=== PATIENT | female | born 1955 | race Asian ===

== ENCOUNTER 2017-11-19 11:58 | Inpatient (IN) | payer OTHER ==
[~2017-11-19] VITALS: Ht 157.5 cm; Wt 73.0 kg
[~2017-11-19 11:58] MED LIST: GUAIFENESIN-COD10 ML PO
[2017-11-19] MEDS ORDERED: METFORMIN HCL1000 M1 PO (12:55)
--- NOTE | 2017-11-19 12:55 | ED GI/GU/ABDOMINAL COMPLAINT ---
History of Present Illness General Chief Complaint: Abdominal Pain/Flank Pain Stated Complaint: SENT BY CLINIC FOR LLQ PAIN Source: patient Exam Limitations: no limitations Vital Signs & Intake/Output Vital Signs & Intake/Output Vital Signs Date Time Temp Pulse Resp B/P B/P Pulse O2 O2 Flow FiO2 Mean Ox Delivery Rate 11/19 1738 98.5 86 18 155/77 98 Room Air Room Air 11/19 1506 98.4 84 18 147/53 99 Room Air 11/19 1212 97.0 84 16 153/82 98 Room Air Allergies Coded Allergies: NO KNOWN ALLERGIES (05/22/16) Reconcile Medications Metformin HCl 1,000 MG TABLET 2 TAB PO DAILY DIABETES (Reported) Multivitamin (Daily Value) 1 EACH TABLET 1 TAB PO DAILY VITAMIN SUPPORT ( Reported) Triage Note: PT TO ED WITH LLQ PAIN. WAS SIB [facility] SINCE THEY COULDNT DO THE EXAM IN THEIR OFFICE. PT HAS FELT NAUSEOUS. DENIES ANY DIARRHEA. IS UNABLE TO WALK OR STAND UP WITHOUT BE3ING IN 10/10 PAIN PER PT. Triage Nurses Notes Reviewed? yes ? n Is pt currently ? No Onset: Gradual Duration: day(s): Timing: recent history Quality/Severity: severe Location: left lower quadrant Radiation: no radiation HPI: 62-year-old female with a history of ovarian cysts presents to emergency department complaining of left lower quadrant abdominal pain. Patient reports generalized abdominal discomfort yesterday and bloating feeling. Patient has still been tolerating PO, she ate cereal last night for dinner. Patient states that this morning pain was increasing, located in left lower quadrant described as severe, 10/10, worse with movement. Patient is barely able to walk without significant pain and left lower quadrant. Patient also experiencing nausea. She has no history of a similar pain in the past. The patient denies diarrhea, constipation, changes in diet, vomiting, urinary symptoms. Past History Travel History Traveled to [place] past 21 day No Medical History Any Pertinent Medical History? 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 No Review of Systems Review of Systems Constitutional: Reports: no symptoms. EENTM: Reports: no symptoms. Respiratory: Reports: no symptoms. Cardiovascular: Reports: no symptoms. GI: Reports: see HPI. Genitourinary: Reports: no symptoms. Musculoskeletal: Reports: no symptoms. Skin: Reports: no symptoms. Neurological/Psychological: Reports: no symptoms. Hematologic/Endocrine: Reports: no symptoms. Immunologic/Allergic: Reports: no symptoms. All Other Systems: Reviewed and Negative Physical Exam Physical Exam General Appearance: well developed/nourished, no apparent distress, alert, awake Head: atraumatic, normal appearance Eyes: Bilateral: normal appearance. Ears, Nose, Throat, Mouth: hearing grossly normal Neck: normal inspection, supple, full range of motion Respiratory: normal breath sounds, no respiratory distress, lungs clear Cardiovascular: regular rate/rhythm Gastrointestinal: normal bowel sounds, soft, no organomegaly, LLQ tenderness with gaurding, pain in left abdomen with palpation of right abdomen Back: normal inspection, normal range of motion Extremities: normal range of motion Neurologic/Psych: awake, alert, oriented x 3 Skin: intact, normal color, warm/dry Core Measures ACS in differential dx? No Sepsis Present: No Sepsis Focused Exam Completed? No Progress Differential Diagnosis: appendicitis, bowel obstruction, diverticulitis, gastritis, hernia, ischemic bowel, inflamm bowel dis, kidney stone, ovarian cyst , pancreatitis, SBO, UTI/pyelo Plan of Care: Orders Procedure Date/time Status Patient Data 11/19 1731 Active Admit to inpatient 11/19 1710 Active BLOOD CULTURE 11/19 1651 Active Add-on Test (ER Only) 11/19 1320 Active TRIGLYCERIDES 11/19 1310 Complete LACTIC ACID 11/19 1310 Complete AMYLASE 11/19 1310 Complete URINALYSIS 11/19 1213 Complete TROPONIN LEVEL 11/19 1213 Complete LIPASE 11/19 1213 Complete COMPREHENSIVE METABOLIC PANEL 11/19 1213 Complete CBC WITHOUT DIFFERENTIAL 11/19 1213 Complete Laboratory Tests 11/19/17 1458: Urine Color YEL, Urine Clarity CLEAR, Urine pH 6.0, Ur Specific [place] 1.010, Urine Protein NEG, Urine Ketones NEG, Urine Nitrite NEG, Urine Bilirubin NEG, Urine Urobilinogen 0.2, Ur Leukocyte Esterase NEG, Ur Microscopic EXAM NOT REQUIRED, Urine Hemoglobin NEG, Urine Glucose NEG 11/19/17 1310: Anion Gap 15, Estimated GFR > 60, BUN/Creatinine Ratio 23.3, Glucose 115 H, Lactic Acid 2.6 H, Calcium 9.4, Total Bilirubin 0.9, AST 28, ALT 28, Alkaline Phosphatase 53, Troponin I 0.04, Total Protein 7.6, Albumin 5.1 H, Globulin 2.5 , Albumin/Globulin Ratio 2.0, Triglycerides 113, Amylase 65, Lipase 204, CBC w Diff NO MAN DIFF REQ, RBC 4.74, MCV 90.1, MCH 31.2 H, MCHC 34.6, RDW 12.5, MPV 6.5 L, Gran % 76.6 H, Lymphocytes % 14.4 L, Monocytes % 6.8, Eosinophils % 1.8, Basophils % 0.4, Absolute Granulocytes 8.5 H, Absolute Lymphocytes 1.6, Absolute Monocytes 0.8 H, Absolute Eosinophils 0.2, Absolute Basophils 0 Microbiology 11/19 1650 BLOOD: Blood Culture - ORD 11/19 1650 BLOOD: Blood Culture - ORD Patient parents indicating significant pain in her abdomen when she walks. Labs reveal elevated lactic acid, patient started on IV fluids. CT scan shows diverticulitis without perforation or abscess. Given patient's elevated lactic acid with her significant pain patient is a candidate for hospital admission. Patient requires IV antibiotics, IV fluids, repeat labs, possible GI consult. Premature discharge medically unsafe at this time. Patient started on IV Unasyn. Spoke with case management who recommended full admission. Spoke with hospitalist, Dr. Sanchez regarding general medicine admission. Spoke with Dr. Johnson regarding this patient. Diagnostic Imaging: Viewed by Me: CT Scan. Discussed w/RAD: CT Scan. Radiology Impression: PATIENT: LOC WILSON PRESENT AGE: 62 PATIENT ACCOUNT NO: [id number] : 54 LOCATION: [facility] ORDERING PHYSICIAN: Karoline VALENCIA SERVICE DATE: 11/19/17 EXAM TYPE: CAT - CT ABD & PELVIS W IV CONTRAST EXAMINATION: CT ABDOMEN AND PELVIS WITH CONTRAST CLINICAL INFORMATION: Diverticulitis. Left lower quadrant pain and tenderness with peritoneal signs. COMPARISON: None TECHNIQUE: Multidetector volumetric imaging was performed of the abdomen and pelvis following IV administration of 95 mL of Optiray 320 intravenous contrast. Sagittal and coronal reformatted images were obtained on the technologist's workstation. DLP: 313.19 mGy-cm FINDINGS: LUNG BASES: The visualized lung bases are unremarkable. LIVER, GALLBLADDER, AND BILIARY TREE: Mild low attenuation of liver parenchyma. No focal liver lesion. No intrahepatic bile duct dilatation. The gallbladder is unremarkable with no evidence of radiopaque gallstones, gallbladder wall thickening, or obvious pericholecystic inflammatory changes. PANCREAS: Unremarkable. SPLEEN: Unremarkable. ADRENAL GLANDS: Unremarkable. KIDNEYS AND URETERS: The kidneys are normal in size, shape, and attenuation. No hydronephrosis, hydroureter, or calculi seen. No perinephric stranding. BLADDER: Unremarkable. GASTROINTESTINAL TRACT: There is diverticula throughout the colon but are most numerous at the left colon and sigmoid. There is focal inflammation of the mid descending colon involving the pericolonic fat. There is focal bowel wall thickening in this area over a short segment. This is a region of diverticulitis of the mid descending colon. There is no perforation or abscess. There is no obstruction. The appendix is normal. The small bowel loops are normal. MESENTERY: Focal inflammation involving the pericolonic fat around the area of diverticulitis. There is no abscess. No perforation or free air. ABDOMINAL WALL: No significant hernia is appreciated. LYMPH NODES: Normal. VASCULAR: Unremarkable. PELVIC VISCERA: The uterus is absent. No adnexal abnormality. OSSEOUS STRUCTURES: Multilevel degenerative spondylosis spine with endplate spurring of the vertebrae. There is facet joint arthrosis. IMPRESSION: 1. Diverticulitis of the descending colon. No perforation or abscess. No free air. 2. Diffuse fatty change of liver. DICTATED BY: Devyn Villegas MD DATE/TIME DICTATED:11/19/171605 WARP SPINNER:MARCIA DATE/TIME TRANSCRIBED:1605 CONFIDENTIAL, DO NOT COPY WITHOUT APPROPRIATE AUTHORIZATION. < Electronically signed in Other Vendor System> SIGNED BY: Devyn Villegas MD 1615 Initial ED EKG: none Departure Departure Disposition: STILL A PATIENT Condition: Stable Clinical Impression Primary Impression: Diverticulitis Secondary Impressions: Abdominal pain Qualifiers: Abdominal location: left lower quadrant Qualified Code: R10.32 - Left lower quadrant pain Referrals: Turner BALBUENA,Wellington Cruz (PCP/Family) Departure Forms: Customer Survey General Discharge Information Admission Note Spoke With: Piotr Sanchez MD Documentation of Exam: Documentation of any treatments & extenuating circumstances including Concerns Regarding Discharge (functional status, medication knowledge or non-compliance, living conditions, etc.) that warrant an admission rather than observation: [ Diverticulitis with significant abdominal pain, elevated lactic acid, requiring IV antibiotic, repeat labs, IV fluids, premature discharge medically unsafe]
[2017-11-19] MEDS ORDERED: DAILY VALUE1 EACH PO (12:56)
[2017-11-19 13:21] LABS: ABSOLUTE BASOPHIL COUNT 0 /CUMM (0.0-0.2); ABSOLUTE EOSINOPHIL COUNT 0.2 /CUMM (0.0-0.7); ABSOLUTE GRANULOCYTE CT 8.5 /CUMM (1.4-6.5); ABSOLUTE LYMPH COUNT 1.6 /CUMM (1.2-3.4); ABSOLUTE MONOCYTE COUNT 0.8 /CUMM (0.10-0.60); BASOPHIL % 0.4 % (0.0-2.0); EOSINOPHIL % 1.8 % (0-5); GRANULOCYTE % 76.6 % (42.2-75.2); HEMATOCRIT 42.7 % (37-47); MEAN CORPUSCULAR HGB 31.2 PG (27.0-31.0); MEAN CORPUSCULAR HGB CONC 34.6 G/DL (33.0-37.0); MEAN CORPUSCULAR VOLUME 90.1 FL (81.0-99.0); MEAN PLATELET VOLUME 6.5 FL (7.4-10.4); PLATELET COUNT 328 /CUMM (130-400); RBC DISTRIBUTION WIDTH 12.5 % (11.5-14.5); RED BLOOD CELL CT 4.74 /CUMM (4.20-5.40); WHITE BLOOD CELL COUNT 11.1 /CUMM (4.8-10.8)
--- NOTE | 2017-11-19 16:15 | CT SCAN REPORT ---
EXAMINATION: CT ABDOMEN AND PELVIS WITH CONTRAST CLINICAL INFORMATION: Diverticulitis. Left lower quadrant pain and tenderness with peritoneal signs. COMPARISON: None TECHNIQUE: Multidetector volumetric imaging was performed of the abdomen and pelvis following IV administration of 95 mL of Optiray 320 intravenous contrast. Sagittal and coronal reformatted images were obtained on the technologist's workstation. DLP: 313.19 mGy-cm FINDINGS: LUNG BASES: The visualized lung bases are unremarkable. LIVER, GALLBLADDER, AND BILIARY TREE: Mild low attenuation of liver parenchyma. No focal liver lesion. No intrahepatic bile duct dilatation. The gallbladder is unremarkable with no evidence of radiopaque gallstones, gallbladder wall thickening, or obvious pericholecystic inflammatory changes. PANCREAS: Unremarkable. SPLEEN: Unremarkable. ADRENAL GLANDS: Unremarkable. KIDNEYS AND URETERS: The kidneys are normal in size, shape, and attenuation. No hydronephrosis, hydroureter, or calculi seen. No perinephric stranding. BLADDER: Unremarkable. GASTROINTESTINAL TRACT: There is diverticula throughout the colon but are most numerous at the left colon and sigmoid. There is focal inflammation of the mid descending colon involving the pericolonic fat. There is focal bowel wall thickening in this area over a short segment. This is a region of diverticulitis of the mid descending colon. There is no perforation or abscess. There is no obstruction. The appendix is normal. The small bowel loops are normal. MESENTERY: Focal inflammation involving the pericolonic fat around the area of diverticulitis. There is no abscess. No perforation or free air. ABDOMINAL WALL: No significant hernia is appreciated. LYMPH NODES: Normal. VASCULAR: Unremarkable. PELVIC VISCERA: The uterus is absent. No adnexal abnormality. OSSEOUS STRUCTURES: Multilevel degenerative spondylosis spine with endplate spurring of the vertebrae. There is facet joint arthrosis. IMPRESSION: 1. Diverticulitis of the descending colon. No perforation or abscess. No free air. 2. Diffuse fatty change of liver.
--- NOTE | 2017-11-19 18:21 | History & Physical ---
Jas BALBUENA,[facility] 11/19/17 1821: General Information and HPI MD Statement: I have seen and personally examined LOC WILSON and documented this H&P. The patient is a 62 year old F who presented with a patient stated chief complaint of [abdominal pain]. Source of Information: patient Exam Limitations: no limitations History of Present Illness: 62 yo F with history of diabetes presented to the ED for evaluation of abdominal pain. Patient states that she has been having intermittent episodes of abdominal pain going on for the past few months but has never seen a doctor for it as she did not believe it to be significant. Last night after dinner she started experiencing generalized abdominal pain, bloating and regurgitation. No nausea/ vomiting. She applied some vicks to relieve her pain and went to bed. She woke up this morning and went to work. Around 9am or so, she started experiencing increasing abdominal pain more localized to her left side, non radiating, aggravated with movement, with no relieving factors, 10/10 in severity with no associated symptoms of nausea, vomiting, diarrhea etc. She went to an urgent care around 11am and after some blood work she was sent to the ED for further evaluation. 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 EENTM: Reports: no symptoms. Cardiovascular: Denies: chest pain, palpitations. Respiratory: Denies: cough, short of breath. GI: Reports: see HPI. Genitourinary: Reports: no symptoms. Musculoskeletal: Denies: joint pain. Skin: Reports: no symptoms. Neurological/Psychological: Reports: no symptoms. Exam & Diagnostic Data Last 24 Hrs of Vital Signs/I&O Vital Signs Date Time Temp Pulse Resp B/P B/P Pulse O2 O2 Flow FiO2 Mean Ox Delivery Rate 05/04 1934 98.5 84 18 128/69 98 Room Air 11/19 1738 98.5 86 18 155/77 98 Room Air Room Air 11/19 1506 98.4 84 18 147/53 99 Room Air 11/19 1212 97.0 84 16 153/82 98 Room Air Intake & Output 11/19 1600 11/19 0800 11/19 0000 Intake Total 1100 Output Total Balance 1100 Intake, IV 1100 Physical Exam General Appearance Alert, Oriented X3, Cooperative, Mild Distress Skin No Rashes, No Breakdown Skin Temp/Moisture Exam: Warm/Dry Sepsis Skin Exam (color): Normal for Ethnicity HEENT Atraumatic Cardiovascular Normal S1, Normal S2, No Murmurs Lungs Normal Air Movement Abdomen Normal Bowel Sounds, Soft, LUQ/LLQ tenderness Neurological Normal Speech Extremities No Cyanosis, No Edema Last 24 Hrs of Labs/Steve: Laboratory Tests 11/19/17 1458: Urine Color YEL, Urine Clarity CLEAR, Urine pH 6.0, Ur Specific [place] 1.010, Urine Protein NEG, Urine Ketones NEG, Urine Nitrite NEG, Urine Bilirubin NEG, Urine Urobilinogen 0.2, Ur Leukocyte Esterase NEG, Ur Microscopic EXAM NOT REQUIRED, Urine Hemoglobin NEG, Urine Glucose NEG 11/19/17 1310: Anion Gap 15, Estimated GFR > 60, BUN/Creatinine Ratio 23.3, Glucose 115 H, Lactic Acid 2.6 H, Calcium 9.4, Total Bilirubin 0.9, AST 28, ALT 28, Alkaline Phosphatase 53, Troponin I 0.04, Total Protein 7.6, Albumin 5.1 H, Globulin 2.5 , Albumin/Globulin Ratio 2.0, Triglycerides 113, Amylase 65, Lipase 204, CBC w Diff NO MAN DIFF REQ, RBC 4.74, MCV 90.1, MCH 31.2 H, MCHC 34.6, RDW 12.5, MPV 6.5 L, Gran % 76.6 H, Lymphocytes % 14.4 L, Monocytes % 6.8, Eosinophils % 1.8, Basophils % 0.4, Absolute Granulocytes 8.5 H, Absolute Lymphocytes 1.6, Absolute Monocytes 0.8 H, Absolute Eosinophils 0.2, Absolute Basophils 0 Microbiology 11/19 1650 BLOOD: Blood Culture - CAN Cancelled: Cancelled via OE: Per MD Decision 11/19 1650 BLOOD: Blood Culture - CAN Cancelled: Cancelled via OE: Per MD Decision Assessment/Plan Assessment: 62 yo F with history of diabetes presented to the ED for evaluation of abdominal pain. Her labs show a mildly increased white count and imaging findings of diverticulitis of the descending colon. with no perforation or abscess. In the ED the patient was started on Unasyn Assessment: 1. Acute Diverticulitis 2. Elevated Lactic Acid 3. History of Diabetes Plan: * Admit patient to general medicine floor. * Continue IV Unasyn 3g q6. * Hydrate with NS @100ml/hr * Pain control with IV morphine 2mg q4 prn and tylenol 650mg prn q6 * Trend Lactic Acid. No signs of sepsis * Hold Metformin. Insulin SS with Accucheks * Diet: Clear Liquid diet. Will advance as tolerated * DVT Prophylaxis: SC Lovenox * Code: Full Code As Ranked By This Provider Problem List: 1. Diverticulitis Core Measures/Misc (04/04) Acute Coronary Syndrome ACS Diagnosis: No Congestive Heart Failure Congestive Heart Failure Diagnosis No Cerebrovascular Accident CVA/TIA Diagnosis: No VTE (View Protocol) VTE Risk Factors Age>40 No Mechanical VTE Prophylaxis d/t N/A MechProphylax Ordered No VTE Pharm Prophylaxis d/t NA PharmProphylax ordered Sepsis (View protocol) Sepsis Present: No Linda Yancey MD 11/19/172036: Resident Review Statement Resident Statement: examined this patient, discussed with advisory internship, agreed with advisory internship Other Findings: 62 Yo F with a PMH of NIDDM with c/o lower abdominal pain for since last night with regurgitation of food and a feeling of bloating. She denies constipation or diarrhea, fever, chills, nausea or vomiting. Had a normal colonoscopy many years ago. Assessment 1. Diverticulitis of the descending colon 2. Type 2 NIDDM Plan -Admit to GM -Clear liquid diet for now for bowel rest -Continue IVF hydration -IV unasyn 3gm Q6hrs -Hold Metformin for now -GI consult in AM -Adequate pain control -Novolog SS -Fingerstick glucose TIDAC/HS -FC -SQ lovenox for DVT ppx Piotr Sanchez MD 11/19/172238: Attending MD Review Statement Attending Statement Attending MD Statement: examined this patient, discuss w/resident/PA/CAR FERRY MASTER, agreed w/resident/PA/CAR FERRY MASTER, reviewed EMR data (avail) Attending Assessment/Plan: 62F PMH T2DM with 3 weeks of LLQ pain, loose stools, and nausea, found to have acute diverticulitis without abscess or perforation on CT. Patient is very uncomfortable and in significant pain. She is having trouble eating due to discomfort. She is hemodynamically stable, WBC 11, lactate 2.6. LLQ tenderness on exam. Will admit to medicine, Unasyn, advance diet as tolerated, pain control , DVT PPx
[2017-11-19 21:31] VITALS: BP 130/80
--- NOTE | 2017-11-20 05:00 | PN- Housestaff ---
See Addendum Subjective Follow-up For: Acute Diverticulitis Subjective: Patient was seen and examined at bedside. She reports doing better. Her pain has significantly improved. Mentions that her feet have some numbess which has been going on for a while and related to her diabetes. Review of Systems Constitutional: Reports: no symptoms. Neurological/Psychological: Reports: numbness, paresthesia (feet). Objective Last 24 Hrs of Vital Signs/I&O Vital Signs Date Time Temp Pulse Resp B/P B/P Pulse O2 O2 Flow FiO2 Mean Ox Delivery Rate 11/19 2131 98.6 85 18 130/80 94 11/19 1934 98.5 84 18 128/69 98 Room Air 11/19 1738 98.5 86 18 155/77 98 Room Air Room Air 11/19 1506 98.4 84 18 147/53 99 Room Air 11/19 1212 97.0 84 16 153/82 98 Room Air Intake & Output 11/20 0800 11/20 0000 11/19 1600 Intake Total 220 1100 Output Total 300 Balance -182 149 7844 Intake, IV 100 1100 Intake, Oral 120 Output, Urine 300 Patient 146 lb Weight Weight Reported by Patient Measurement Method Physical Exam General Appearance: Alert, Oriented X3, Cooperative, Mild Distress Skin: No Rashes, No Breakdown Skin Temp/Moisture Exam: Warm/Dry Sepsis Skin Exam (color): Normal for Ethnicity HEENT: Atraumatic Cardiovascular: Normal S1, Normal S2 Lungs: Clear to Auscultation, Normal Air Movement Abdomen: Soft, LUQ tenderness Neurological: Normal Speech Extremities: No Edema Last 24 Hrs of Lab/Steve Results Last 24 Hrs of Labs/Mics: Laboratory Tests 11/20/17 0040: Lactic Acid 1.2 11/19/17 1458: Urine Color YEL, Urine Clarity CLEAR, Urine pH 6.0, Ur Specific [place] 1.010, Urine Protein NEG, Urine Ketones NEG, Urine Nitrite NEG, Urine Bilirubin NEG, Urine Urobilinogen 0.2, Ur Leukocyte Esterase NEG, Ur Microscopic EXAM NOT REQUIRED, Urine Hemoglobin NEG, Urine Glucose NEG 11/19/17 1310: Anion Gap 15, Estimated GFR > 60, BUN/Creatinine Ratio 23.3, Glucose 115 H, Lactic Acid 2.6 H, Calcium 9.4, Total Bilirubin 0.9, AST 28, ALT 28, Alkaline Phosphatase 53, Troponin I 0.04, Total Protein 7.6, Albumin 5.1 H, Globulin 2.5 , Albumin/Globulin Ratio 2.0, Triglycerides 113, Amylase 65, Lipase 204, CBC w Diff NO MAN DIFF REQ, RBC 4.74, MCV 90.1, MCH 31.2 H, MCHC 34.6, RDW 12.5, MPV 6.5 L, Gran % 76.6 H, Lymphocytes % 14.4 L, Monocytes % 6.8, Eosinophils % 1.8, Basophils % 0.4, Absolute Granulocytes 8.5 H, Absolute Lymphocytes 1.6, Absolute Monocytes 0.8 H, Absolute Eosinophils 0.2, Absolute Basophils 0 Microbiology 11/19 1650 BLOOD: Blood Culture - CAN Cancelled: Cancelled via OE: Per MD Decision 11/19 1650 BLOOD: Blood Culture - CAN Cancelled: Cancelled via OE: Per MD Decision Assessment/Plan Assessment: 62 yo F with history of diabetes presented to the ED for evaluation of abdominal pain. Her labs on admission showed a mildly increased white count and imaging findings of diverticulitis of the descending colon without perforation or abscess. Assessment: 1. Acute Diverticulitis 2. Elevated Lactic Acid - resolved 3. History of Diabetes Plan: * Continue IV Unasyn 3g q6 for now. * Pain control with IV morphine 2mg q4 prn and tylenol 650mg prn q6 * Lactic acid was elevated on admission but has resolved. * Follow up HbA1c, folate and B12. * Continue Insulin SS with Accucheks * Diet: Clear Liquid diet. Will advance to full liquid diet for lunch. * DVT Prophylaxis: SC Lovenox * Code: Full Code Problem List: 1. Diverticulitis Pain Ratin Pain Location: none Pain Goal: Remain pain free Pain Plan: none Tomorrow's Labs & Rationales: CBC
[2017-11-20 05:46] VITALS: BP 106/64
[2017-11-20 08:29] LABS: ABSOLUTE BASOPHIL COUNT 0 /CUMM (0.0-0.2); ABSOLUTE EOSINOPHIL COUNT 0.3 /CUMM (0.0-0.7); ABSOLUTE GRANULOCYTE CT 4.2 /CUMM (1.4-6.5); ABSOLUTE LYMPH COUNT 1.4 /CUMM (1.2-3.4); ABSOLUTE MONOCYTE COUNT 0.4 /CUMM (0.10-0.60); BASOPHIL % 0.4 % (0.0-2.0); EOSINOPHIL % 4.1 % (0-5); HEMATOCRIT 38.4 % (37-47); MEAN CORPUSCULAR HGB 30.6 PG (27.0-31.0); MEAN CORPUSCULAR VOLUME 90.1 FL (81.0-99.0); MEAN PLATELET VOLUME 6.9 FL (7.4-10.4); PLATELET COUNT 268 /CUMM (130-400); RBC DISTRIBUTION WIDTH 12.9 % (11.5-14.5); RED BLOOD CELL CT 4.26 /CUMM (4.20-5.40); WHITE BLOOD CELL COUNT 6.3 /CUMM (4.8-10.8)
[2017-11-20 13:39] VITALS: BP 125/69
[2017-11-20 22:13] VITALS: BP 114/84
[2017-11-21 07:02] VITALS: BP 124/72
[2017-11-21] MEDS ORDERED: AUGMENTIN 875-1 EACH PO ×2 (08:29→10:50)
--- NOTE | 2017-11-21 08:30 | Patient Discharge Instructions ---
Discharge Instructions General Discharge Information You were seen/treated for: Diverticulitis Watch for these problems: Fever, chest pain, shortness of breath Special Instructions: Please take all medications as directed. Please follow-up with primary care. Diet Continue normal diet: Yes Recommended Diet: high fiber Activity Full Activity/No Limits: Yes Acute Coronary Syndrome Inclusion Criteria At DC or during hospital stay patient has or had the following: ACS DIAGNOSIS No Discharge Core Measures Meds if any: Prescribed or Continued at Discharge Meds if any: NOT Prescribed or Continued at Discharge Congestive Heart Failure Inclusion Criteria At DC or during hospital stay patient has or had the following: CHF DIAGNOSIS No Discharge Core Measures Meds if any: Prescribed or Continued at Discharge Meds if any: NOT Prescribed or Continued at Discharge Cerebrovascular accident Inclusion Criteria At DC or during hospital stay patient has or had the following: CVA/TIA Diagnosis No Discharge Core Measures Meds if any: Prescribed or Continued at Discharge Meds if any: NOT Prescribed or Continued at Discharge Venous thromboembolism Inclusion Criteria VTE Diagnosis No VTE Type NONE VTE Confirmed by (Test) NONE Discharge Core Measures - Per Current guidelines, there needs to be overlap - treatment for the first 5 days of Warfarin therapy. - If discharged on Warfarin prior to 5 days of - overlap therapy, the patient will need to be - assessed for post discharge needs including - *Post discharge parental anticoagulation - *Warfarin and/or parental anticoagulation education - *Follow up date to check INR post discharge At least 5 days overlap therapy as Inpatient No Meds if any: Prescribed or Continued at Discharge Note: Overlap Therapy is Warfarin and Anticoagulant Meds if any: NOT Prescribed or Continued at Discharge
--- NOTE | 2017-11-21 08:31 | PN- Housestaff ---
See Addendum Subjective Follow-up For: Diverticulitis Subjective: No overnight events. Patient slept well and has no complaints this morning. No abdominal pain, chest pain, shortness of breath. Patient wants to go home. Review of Systems Constitutional: Reports: no symptoms. EENTM: Reports: no symptoms. Cardiovascular: Reports: no symptoms. Respiratory: Reports: no symptoms. Gastrointestinal: Reports: no symptoms. Genitourinary: Reports: no symptoms. Musculoskeletal: Reports: no symptoms. Skin: Reports: no symptoms. Neurological/Psychological: Reports: no symptoms. Hematologic/Endocrine: Reports: no symptoms. Immunologic/Allergic: Reports: no symptoms. Objective Last 24 Hrs of Vital Signs/I&O Vital Signs Date Time Temp Pulse Resp B/P B/P Pulse O2 O2 Flow FiO2 Mean Ox Delivery Rate 11/21 0702 98.0 69 20 124/72 96 Room Air 11/20 2213 97.6 79 18 114/84 96 Room Air 11/20 1339 98.1 94 18 125/69 94 Room Air Intake & Output 11/21 1600 11/21 0800 11/21 0000 Intake Total 500 950 Output Total Balance 500 950 Intake, IV 260 Intake, Oral 240 950 Physical Exam General Appearance: Alert, Oriented X3, Cooperative, No Acute Distress Cardiovascular: Regular Rate, Normal S1, Normal S2 Lungs: Clear to Auscultation Abdomen: point tenderness LUQ Extremities: No Edema, Normal Pulses, No Tenderness/Swelling Current Medications: Current Medications Sig/Sandy Start time Last Medication Dose Route Stop Time Status Admin Acetaminophen 650 MG Q6P PRN 11/19 184 AC PO Acetaminophen 1,000 MG Q6P PRN 11/19 184 AC IV Ampicillin Sodium/ 3,000 MG Q6 11/19 2359 AC 11/21 Sulbactam Sodium IV 0520 Sodium Chloride 100 ML Enoxaparin Sodium 40 MG DAILY 11/20 0900 AC SC Insulin Aspart 0 TIDAC 11/20 0800 AC 11/20 SC 1714 Morphine Sulfate 2 MG Q4P PRN 11/19 184 AC IV Ondansetron HCl 4 MG Q6P PRN 11/19 184 AC IV Senna/Docusate Sodium 2 TAB AT BEDTIME 11/19 2100 AC 11/20 PO 2029 Sodium Chloride 1,000 ML .Q10H 11/19 184 DC 05/05 IV 0510 Last 24 Hrs of Lab/Steve Results Last 24 Hrs of Labs/Mics: Laboratory Tests 11/21/17 0620: CBC w Diff Pending, WBC Pending, RBC Pending, Hgb Pending, Hct Pending, MCV Pending, MCH Pending, MCHC Pending, RDW Pending, Plt Count Pending, MPV Pending Assessment/Plan Assessment: 62 yo F with history of diabetes presented to the ED for evaluation of abdominal pain. Her labs on admission showed a mildly increased white count and imaging findings of diverticulitis of the descending colon without perforation or abscess. Assessment: 1. Acute Diverticulitis 2. Elevated Lactic Acid - resolved 3. History of Diabetes Plan: Continue IV Unasyn 3g q6 for now. Discharge on Augmentin Pain control with IV morphine 2mg q4 prn and tylenol 650mg prn q6 Lactic acid was elevated on admission but has resolved. Follow up HbA1c, folate and B12. Continue Insulin SS with Accucheks Diet: High-fiber diet, consistent carbohydrate DVT Prophylaxis: SC Lovenox Code: Full Code Problem List: 1. Diverticulitis Pain Ratin Pain Location: no Pain Goal: Remain pain free Pain Plan: see a/p Tomorrow's Labs & Rationales: no
--- NOTE | 2017-11-21 08:32 | Discharge Summary ---
Visit Information Visit Dates Admission Date: 11/19/17 Discharge Date: 11/21/17 Hospital Course Course Attending Physician: Piotr Sanchez MD Primary Care Physician: Wellington Tompkins MD Hospital Course: 62 yo F with history of diabetes presented to the ED for evaluation of abdominal pain. Her labs show a mildly increased white count and imaging findings of diverticulitis of the descending colon. with no perforation or abscess. In the ED the patient was started on Unasyn Assessment: 1. Acute Diverticulitis 2. Elevated Lactic Acid 3. History of Diabetes Patient was started on IV ampicillin/sulbactam and discharged on Augmentin. She also received IV fluid hydration. She should follow a high-fiber diet and follow-up with primary care in 1 week. She should avoid constipation intake bowel regimen as needed. The patient's other home medications were continued. Allergies: Coded Allergies: NO KNOWN ALLERGIES (05/22/16) Disposition Summary Disposition Principal Diagnosis: 1. Acute Diverticulitis Additional Diagnosis: 2. Elevated Lactic Acid 3. History of Diabetes Discharge Disposition: home or self care Discharge Instructions General Discharge Information Code Status: Full Code Patient's Diet: High-fiber diet Patient's Activity: As tolerated Follow-Up Instructions/Appts: Please take all medications as directed. Please follow-up with primary care in 1 week. Medications at Discharge Discharge Medications: Continue taking these medications: Metformin HCl (Metformin HCl) 1,000 MG TABLET 2 Tablet ORAL DAILY Qty = 60 Comments: NOT GIVEN IN [facility]OSTITAL Multivitamin (Daily Value) 1 EACH TABLET 1 Tablet ORAL DAILY Comments: NOT GIVEN IN HOSTITAL. Start taking the following new medications: Amoxicillin/Potassium Clav (Augmentin 875-125 Tablet) 875 MG-125 MG TABLET 1 Tablet ORAL TWICE DAILY Qty = 14 No Refills Instructions: . Copies To: Turner BALBUENA,Wellington Cruz Attending MD Review Statement Documenting Attending: Kareem Schuler MD
[2017-11-21 08:39] LABS: ABSOLUTE BASOPHIL COUNT 0.1 /CUMM (0.0-0.2); ABSOLUTE EOSINOPHIL COUNT 0.2 /CUMM (0.0-0.7); ABSOLUTE GRANULOCYTE CT 3.6 /CUMM (1.4-6.5); ABSOLUTE LYMPH COUNT 1.5 /CUMM (1.2-3.4); ABSOLUTE MONOCYTE COUNT 0.4 /CUMM (0.10-0.60); BASOPHIL % 0.9 % (0.0-2.0); GRANULOCYTE % 62.9 % (42.2-75.2); HEMATOCRIT 39.7 % (37-47); MEAN CORPUSCULAR HGB 30.5 PG (27.0-31.0); MEAN CORPUSCULAR HGB CONC 33.8 G/DL (33.0-37.0); MEAN CORPUSCULAR VOLUME 90.2 FL (81.0-99.0); MEAN PLATELET VOLUME 6.9 FL (7.4-10.4); PLATELET COUNT 289 /CUMM (130-400); RBC DISTRIBUTION WIDTH 12.7 % (11.5-14.5); WHITE BLOOD CELL COUNT 5.8 /CUMM (4.8-10.8)
== END 2017-11-21 12:10 | DRG 392 ==
LOC: ERH 11:58 → 2NB 17:10 → ERHI 17:10 → ENRESERV 19:36 → ENTRNSPT 20:20 → EDTRNSPT 20:27 → EDTRNSPTSTS 20:27 → 2NB 20:39 → CMPTRNSPT 20:58 → ENPENDDIS 11-21 08:47 → 2NB 11-21 12:10
PROVIDERS: Internal Medicine; Physician Assistant Medical; Student in an Organized Health Care Education/Training Program
DX: K57.32 Diverticulitis of large intestine without perforation or abscess without bleeding (principal); E11.9 Type 2 diabetes mellitus without complications
CPT/HCPCS: 2NBSP; 36415; 36592; 74177; 81003; 82436; 87040; 96361; 96365; 96375; J1650